=== PATIENT | female | born 1945 | race Caucasian/White ===

== ENCOUNTER → 2016-11-02 | Outpatient (CLI) | payer MEDICARE, OTHER ==
[2016-11-02 08:21] LABS: CHLORIDE,CL 105 mmol/L (98-110); SODIUM,NA 139 mmol/L (136-146)
== END ==
LOC: MW.CHIM 07:42
PROVIDERS: ATTEND Internal Medicine
DX: I10 Essential (primary) hypertension (principal); M17.9 Osteoarthritis of knee, unspecified; E66.3 Overweight
CPT/HCPCS: 36415; 80053; 80061; 99214

== ENCOUNTER 2016-11-21 12:47 | Observation (INO) | payer MEDICARE, OTHER ==
[2016-11-21 13:43] LABS: CHLORIDE,CL 104 mmol/L (98-110); SODIUM,NA 138 mmol/L (136-146)
--- NOTE | 2016-11-21 14:55 | EDM.PDOC ---
ED HPI NEURO - General Chief Complaint: Neuro Symptoms/Deficits Stated Complaint: FAINTING/DIZZY/POSSIBLE STROKE Time Seen by Provider: 11/21/16 12:54 Source of Information: Reports: Patient History Limitations: Reports: No limitations - History of Present Illness INITIAL COMMENTS - FREE TEXT/NARRATIVE: HISTORY AND PHYSICAL: History of present illness: [Patient comes to the emergency room complaining of dizziness. She got up to use the restroom at 7 AM and then laid back down. Her symptoms began suddenly at 7:15 AM this morning after she laid back down in bed. She's had episodes of nausea and one episode of vomiting since her dizziness began. her symptoms have not improved throughout the day. She reports that her heart rate usually runs between 60 and 70. She has a history of hypertension for which she takes Univasc and hydrochlorothiazide at bedtime. She took these medications last night. She denies any chest pain, shortness of breath and difficulty breathing. She felt well last night and has not recently had any illnesses. She has been dealing with infected left upper tooth under her bridge and was prescribed antibiotics several weeks ago. She has noticed some occasional left-sided face discomfort from time to time with some radiation into her left ear. Denies blurred vision double vision. She's had no fever or chills. No headaches. Has had full range of motion of all extremities without weakness. She follows regularly with Dr. Castaneda.] Review of systems: As per history of present illness and below otherwise all systems reviewed and negative. Past medical history: As per history of present illness and as reviewed below otherwise noncontributory. Surgical history: As per history of present illness and as reviewed below otherwise noncontributory. Social history: No reported history of drug or alcohol abuse. 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 Family history: As per history of present illness and as reviewed below otherwise noncontributory. Physical exam: HEENT: Atraumatic, normocephalic. Wears glasses. PERRLA. EOMI. No nystagmus. Nares are patent. TMs are pearly [place] without erythema. Oral mucous membranes are pink and moist. No abdominal swelling erythema or drainage. Sinuses are nontender with palpation. Neck supple, no lymphadenopathy. Lungs: Clear to auscultation, breath sounds equal bilaterally, no wheezing crackles or rales. Heart: S1S2, regular rhythm. Rate 48. negative for clicks, rubs, or JVD. No murmurs. EKG shows normal sinus rhythm at a rate of 49. Abdomen: Normoactive bowel sounds. Soft, nondistended, nontender. Negative for masses, guarding or rebound. Negative for costovertebral tenderness. Genitourinary: Deferred. Rectal: Deferred. Extremities: Atraumatic, no deformities. Full range of motion to extremities. negative for cords or calf pain. Neurovascular unremarkable. Neuro: Awake, alert, oriented. Cranial nerves II through XII unremarkable. Exam nonfocal. Psych: Well-groomed, pleasant and conversational. Patient is a good historian. Diagnostics: [EKG, chest x-ray, head CT without contrast, CBC, CMP, troponin, UA] Impression: [Near syncope Bradycardia] Plan: [Discussed patient's condition with Dr. Rodrick Tapia who agrees to accept patient for observation telemetry. Patient is in agreement with today's plan.] Definitive disposition and diagnosis as appropriate pending reevaluation and review of above. - Related Data Allergies/ADRs: Allergies Allergy/AdvReac Type Severity Reaction Status Date / Time erythromycin base Allergy Swollen Verified 11/21/16 13:00 [Erythromycin Base] Tongue sulfamethoxazole Allergy Swollen Verified 11/21/16 13:00 [From Bactrim] Tongue trimethoprim [From Bactrim] Allergy Swollen Verified 11/21/16 13:00 Tongue Home Meds: Home Meds Hydrochlorothiazide 12.5 mg PO QPM 11/21/16 [History] Moexipril HCl [Moexipril] 15 mg PO QPM 11/21/16 [History] Past Medical History Cardiovascular History: Reports: Hypertension Social & Family History - Family History Family Medical History: Noncontributory - Tobacco Use Smoking Status *Q: Never Smoker - Caffeine Use Caffeine Use: Reports: Coffee Caffeine Use Comment: 6 cups/day - Recreational Drug Use Recreational Drug Use: No ED ROS GENERAL - Review of Systems Review Of Systems: ROS reveals no pertinent complaints other than HPI. ED EXAM, NEURO - Physical Exam Exam: See Below Course - Vital Signs Last Recorded V/S: Last Vital Signs Temp 97.0 F 11/21/16 13:02 Pulse 74 11/21/16 15:03 Resp 16 11/21/16 15:03 BP 150/72 H 11/21/16 15:03 Pulse Ox 97 11/21/16 15:03 - Orders/Labs/Meds Orders: Active Orders 24 hr Category Date Time Status Admission Status [Patient Status] [ADT] Stat ADT 11/21/16 14:39 Active EKG Documentation Completion [RC] STAT Care 11/21/16 12:54 Active Chest 2V [CR] Stat Exams 11/21/16 13:07 Taken Head wo Cont [CT] Stat Exams 11/21/16 13:10 Taken Labs: Laboratory Tests 11/21/16 11/21/16 11/21/16 Range/Units 13:20 13:20 13:20 WBC 5.71 (4.0-11.0) K/uL RBC 4.52 (4.30-5.90) M/uL Hgb 13.4 (12.0-16.0) g/dL Hct 40.0 (36.0-46.0) % MCV 88.5 (80.0-98.0) fL MCH 29.6 (27.0-32.0) pg MCHC 33.5 (31.0-37.0) g/dL RDW Std Deviation 42.9 (28.0-62.0) fl RDW Coeff of Maged 13 (11.0-15.0) % Plt Count 281 (150-400) K/uL MPV 9.60 (7.40-12.00) fL Neut % (Auto) 79.3 (48.0-80.0) % Lymph % (Auto) 13.3 L (16.0-40.0) % [place] % (Auto) 6.5 (0.0-15.0) % Eos % (Auto) 0.5 (0.0-7.0) % Baso % (Auto) 0.4 (0.0-1.5) % Neut # (Auto) 4.5 (1.4-5.7) K/uL Lymph # (Auto) 0.8 (0.6-2.4) K/uL [place] # (Auto) 0.4 (0.0-0.8) K/uL Eos # (Auto) 0.0 (0.0-0.7) K/uL Baso # (Auto) 0.0 (0.0-0.1) K/uL Nucleated RBC % 0.0 /100WBC Nucleated RBCs # 0 K/uL Sodium 138 (136-146) mmol/L Potassium 3.2 L (3.5-5.1) mmol/L Chloride 104 (98-110) mmol/L Carbon Dioxide 25 (21-31) mmol/L BUN 9 (6.0-23.0) mg/dL Creatinine 0.6 (0.6-1.5) mg/dL Est Cr Clr Drug Dosing 73.20 mL/min Estimated GFR (MDRD) > 60.0 ml/min Glucose 111 H (60-110) mg/dL Calcium 8.9 (8.8-10.8) mg/dL Total Bilirubin 0.6 (0.1-1.5) mg/dL AST 17 (5-40) IU/L ALT 15 (8-54) IU/L Alkaline Phosphatase 51 (40-150) Troponin I < 0.10 (0.0-0.29) NG/ML Total Protein 6.8 (6.0-8.0) g/dL Albumin 3.8 (3.4-4.8) g/dL Globulin 3.0 (2.0-3.5) g/dL Albumin/Globulin Ratio 1.3 (1.3-2.8) Urine Color Urine Appearance Urine pH (5.0-8.0) Ur Specific [place] (1.001-1.035) Urine Protein (NEGATIVE) mg/dL Urine Glucose (UA) (NEGATIVE) mg/dL Urine Ketones (NEGATIVE) mg/dL Urine Occult Blood (NEGATIVE) Urine Nitrite (NEGATIVE) Urine Bilirubin (NEGATIVE) Urine Urobilinogen (<2.0) EU/dL Ur Leukocyte Esterase (NEGATIVE) Urine RBC (0-2/HPF) Urine WBC (0-5/HPF) Ur Epithelial Cells (NONE-FEW) Amorphous Sediment (NEGATIVE) Urine Bacteria (NEGATIVE) Urine Mucus (NONE-MOD) 11/21/16 Range/Units 13:45 WBC (4.0-11.0) K/uL RBC (4.30-5.90) M/uL Hgb (12.0-16.0) g/dL Hct (36.0-46.0) % MCV (80.0-98.0) fL MCH (27.0-32.0) pg MCHC (31.0-37.0) g/dL RDW Std Deviation (28.0-62.0) fl RDW Coeff of Maged (11.0-15.0) % Plt Count (150-400) K/uL MPV (7.40-12.00) fL Neut % (Auto) (48.0-80.0) % Lymph % (Auto) (16.0-40.0) % [place] % (Auto) (0.0-15.0) % Eos % (Auto) (0.0-7.0) % Baso % (Auto) (0.0-1.5) % Neut # (Auto) (1.4-5.7) K/uL Lymph # (Auto) (0.6-2.4) K/uL [place] # (Auto) (0.0-0.8) K/uL Eos # (Auto) (0.0-0.7) K/uL Baso # (Auto) (0.0-0.1) K/uL Nucleated RBC % /100WBC Nucleated RBCs # K/uL Sodium (136-146) mmol/L Potassium (3.5-5.1) mmol/L Chloride (98-110) mmol/L Carbon Dioxide (21-31) mmol/L BUN (6.0-23.0) mg/dL Creatinine (0.6-1.5) mg/dL Est Cr Clr Drug Dosing mL/min Estimated GFR (MDRD) ml/min Glucose (60-110) mg/dL Calcium (8.8-10.8) mg/dL Total Bilirubin (0.1-1.5) mg/dL AST (5-40) IU/L ALT (8-54) IU/L Alkaline Phosphatase (40-150) Troponin I (0.0-0.29) NG/ML Total Protein (6.0-8.0) g/dL Albumin (3.4-4.8) g/dL Globulin (2.0-3.5) g/dL Albumin/Globulin Ratio (1.3-2.8) Urine Color YELLOW Urine Appearance CLOUDY Urine pH 7.5 (5.0-8.0) Ur Specific [place] 1.015 (1.001-1.035) Urine Protein TRACE (NEGATIVE) mg/dL Urine Glucose (UA) NEGATIVE (NEGATIVE) mg/dL Urine Ketones TRACE H (NEGATIVE) mg/dL Urine Occult Blood NEGATIVE (NEGATIVE) Urine Nitrite NEGATIVE (NEGATIVE) Urine Bilirubin NEGATIVE (NEGATIVE) Urine Urobilinogen 0.2 (<2.0) EU/dL Ur Leukocyte Esterase NEGATIVE (NEGATIVE) Urine RBC 0-1 (0-2/HPF) Urine WBC 0-1 (0-5/HPF) Ur Epithelial Cells OCCASIONAL (NONE-FEW) Amorphous Sediment MODERATE (NEGATIVE) Urine Bacteria 1+ H (NEGATIVE) Urine Mucus LIGHT (NONE-MOD) Departure - Departure Time of Disposition: 14:39 Disposition: Refer to Observation Condition: good Clinical Impression: Near syncope - My Orders Last 24 Hours: My Active Orders 11/21/16 12:54 EKG Documentation Completion [RC] STAT 11/21/16 13:07 Chest 2V [CR] Stat 11/21/16 13:10 Head wo Cont [CT] Stat 11/21/16 14:39 Admission Status [Patient Status] [ADT] Stat - Assessment/Plan Last 24 Hours: My Active Orders 11/21/16 12:54 EKG Documentation Completion [RC] STAT 11/21/16 13:07 Chest 2V [CR] Stat 11/21/16 13:10 Head wo Cont [CT] Stat 11/21/16 14:39 Admission Status [Patient Status] [ADT] Stat
[2016-11-21] MEDS ORDERED: Potassium Chloride 20 MEQ Tab.ER PO ONE (20:29)
[2016-11-21] MEDS ORDERED: Ondansetron 4 MG/2 ML SDV IVPUSH PRN (20:29)
--- NOTE | 2016-11-21 20:44 | PCM.HP ---
H&P History of Present Illness - General Date of Service: 11/21/16 - History of Present Illness Initial Comments - Free Text/Narative: 71 yo female with pmh of hypertension who presented with one day history of dizziness. After waking up this morning and going to the bathroom she went back to bed. 15 minutes later when she tried to get up she was dizzy and could hardly walk. She described her dizziness as if the room was spinning. She denies any lightheadedness, palpitations, or chest pain. She reports nausea with her dizziness. It last for several hours until she reached the medical floor. - Related Data Allergies/Adverse Reactions: Allergies Allergy/AdvReac Type Severity Reaction Status Date / Time erythromycin base Allergy Swollen Verified 11/21/16 13:00 [Erythromycin Base] Tongue sulfamethoxazole Allergy Swollen Verified 11/21/16 13:00 [From Bactrim] Tongue trimethoprim [From Bactrim] Allergy Swollen Verified 11/21/16 13:00 Tongue Home Medications: Home Meds Hydrochlorothiazide 12.5 mg PO QPM 11/21/16 [History] Moexipril HCl [Moexipril] 15 mg PO QPM 11/21/16 [History] Levofloxacin [Levaquin] 250 mg PO Q24H #3 tablet 11/22/16 [Rx] Past Medical History Cardiovascular History: Reports: Hypertension Social & Family History - Family History Family Medical History: Noncontributory - Tobacco Use Smoking Status *Q: Never Smoker - Caffeine Use Caffeine Use: Reports: Coffee Caffeine Use Comment: 6 cups/day - Recreational Drug Use Recreational Drug Use: No H&P Review of Systems - Review of Systems: Review Of Systems: See Below General: Reports: no symptoms HEENT: Reports: no symptoms Pulmonary: Reports: No Symptoms Cardiovascular: Reports: no symptoms Gastrointestinal: Reports: No symptoms Genitourinary: Reports: no symptoms Musculoskeletal: Reports: no symptoms Skin: Reports: no symptoms Psychiatric: Reports: no symptoms Neurological: Reports: No Symptoms Hematologic/Lymphatic: Reports: no symptoms Immunologic: Reports: no symptoms Exam - Exam Exam: See Below - Vital Signs Vital Signs: Last Vital Signs Temp 36.9 C 11/21/16 15:06 Pulse 49 L 11/21/16 15:23 Resp 16 11/21/16 15:23 BP 148/82 H 11/21/16 15:23 Pulse Ox 98 11/21/16 15:23 Weight: 74.253 kg - Exam General: alert, oriented HEENT: Posterior pharynx clear Neck: supple, trachea midline, 2 Lungs: Clear to auscultation, Normal respiratory effort Cardiovascular: regular rate, regular rhythm Abdomen: normal bowel sounds, soft Extremities: 3, normal inspection, 10 Skin: warm, dry, intact Neurological: cranial nerves intact, reflexes equal bilateral, strength equal bilateral, normal speech, normal tone, other (slight unsteadiness in gait and when standing with eyes closed). No: focal deficit - Patient Data Result Diagrams: 11/22/16 05:07 11/22/16 05:07 *Q Meaningful Use (ADM) - VTE *Q VTE Criteria *Q: - Stroke *Q Stroke Criteria *Q: - AMI *Q AMI Criteria *Q: Problem List Initiated/Reviewed/Updated: Yes Orders Last 24hrs: Active Orders 24 hr Category Date Time Status Antiembolic Devices [RC] PER UNIT ROUTINE Care 11/21/16 20:31 Active Oxygen Therapy [RC] PRN Care 11/21/16 20:29 Active Up With Assistance [RC] ASDIRECTED Care 11/21/16 20:29 Active VTE/DVT Education [RC] PER UNIT ROUTINE Care 11/21/16 20:29 Active Vital Signs [RC] Q4H Care 11/21/16 20:29 Active Regular Diet [DIET] Diet 11/21/16 Dinner Active BASIC METABOLIC PANEL,BMP [CHEM] AM Lab 11/22/16 05:11 Ordered CBC WITH AUTO DIFF [HEME] AM Lab 11/22/16 05:11 Ordered MAGNESIUM [CHEM] AM Lab 11/22/16 05:11 Ordered MAGNESIUM [CHEM] Routine Lab 11/21/16 13:20 Received Hydrochlorothiazide Med 11/22/16 18:00 Ordered 12.5 mg PO QPM Moexipril [Univasc] Med 11/22/16 18:00 Ordered 15 mg PO QPM Ondansetron [Zofran] Med 11/21/16 20:29 Ordered 4 mg IVPUSH Q4H PRN Potassium Chloride [Klor-Con M20] Med 11/21/16 20:29 Once 40 meq PO ONETIME ONE Sequential Compression Device [OM.PC] Per Unit Routine Oth 11/21/16 20:30 Ordered Medication Orders Hydrochlorothiazide (Hydrochlorothiazide) 12.5 mg PO QPM SONIA Moexipril HCl (Univasc) 15 mg PO QPM SONIA Ondansetron HCl (Zofran) 4 mg IVPUSH Q4H PRN PRN Reason: Nausea Potassium Chloride (Klor-Con M20) 40 meq PO ONETIME ONE Stop: 11/21/16 20:30 Assessment/Plan Comment:: 71 yo female admitted with dizziness. Likely vertigo over symptomatic bradycardia. Will monitor overnight on telemetry. Will consult PT.
[2016-11-22 06:32] LABS: CHLORIDE,CL 107 mmol/L (98-110); SODIUM,NA 141 mmol/L (136-146)
[2016-11-22 09:06] VITALS: BP 128/65
--- NOTE | 2016-11-22 11:06 | CT ---
EXAM DATE: 11/21/16 PATIENT'S AGE: 71 Patient: VIKTOR STRICKLAND Facility: [place], [place] Site . Site : 1945 Study: CT Head [id number]/9/2017 1:31:11 PM Ordering Physician: Doctor Santos Final Report: INDICATION: Fainting episode. Dizziness. TECHNIQUE: Noncontrast head CT. COMPARISON: October 20, 2015. FINDINGS: No intracranial hemorrhage or hydrocephalus. No mass effect or shift of midline structures. The calvarium and skull base are negative for fractures. The included paranasal sinuses and mastoid air cells are largely clear except for trace mucosal thickening in the left maxillary sinus. Clear interval improvement in the appearance of the maxillary sinuses compared to the prior study. IMPRESSION: 1. No acute intracranial process identified. 2. Trace mucosal thickening in the left maxillary sinus clearly improved compared to the prior study. Dictated by Abdulkadir Boston MD @ 11/21/2016 1:56:57 PM Dictated by: Abdulkadir Boston MD @ 11/21/2016 13:57:06 (Electronic Signature) Report Signed by Proxy and Original Signed Document filed in the Medical Record. [facility] HOSPITALJoey
--- NOTE | 2016-11-22 11:11 | CR ---
EXAM DATE: 11/21/16 PATIENT'S AGE: 71 Patient: VIKTOR STRICKLAND Facility: [place], [place] Site . Site : 1945 Study: XRay Chest [id number]/9/2017 1:41:19 PM Ordering Physician: Doctor Santos Final Report: Indication: Dizziness and shortness of breath. Comparison: None. Findings: The bones are diffusely demineralized and radiopaque fixation screw/devices project over the right proximal humerus. Cardiac silhouette is mildly enlarged with a left ventricular configuration. Pulmonary vasculature is mildly prominent. There are no focal infiltrates nor pleural effusions. Surgical clips in the right upper quadrant reflect prior cholecystectomy. Impression: Mild pulmonary vascular congestion with cardiomegaly. Dictated by Licha Oates MD @ Nov 21 2016 2:24PM (Electronic Signature) Report Signed by Proxy and Original Signed Document filed in the Medical Record. [facility]E
[2016-11-22] MEDS ORDERED: Hydrochlorothiazide 12.5 MG Cap PO SCH (18:00)
--- NOTE | 2016-11-24 18:09 | PCM.DCSUM1 ---
Discharge Summary - Hospital Course Free Text/Narrative:: Admission diagnosis: 1. dizziness 2. Bradycardia 3. Hypertension Discharge diagnosis: 1. dizziness, resolved 2. Bradycardia, improved 3. Hypertension, stable 4. UTI 71 year old female admitted with dizziness and bradycardia. Head CT showed no acute abnormalities. CXR showed mild pulmonary vascular congestion and cardiomegaly. Patient placed on telemetry which showed bradycardia in normal sinus rhythm. HR varied between 47-75. Home medications of HCTZ and Moexipril continued during admission. Assessed by PT who suggested possible inner ear problems causing dizziness. Dizziness resolved during admission. Dr. Stevenson, hvac lead, contacted and recommended outpatient f/u with him. CBC, troponin were unremarkable. CMP showed potassium of 3.2 which returned to normal limits with potassium supplementation. UA showed +1 bacteria and trace ketones. Patient felt improved at time of discharge. - Discharge Data Discharge Date: 11/22/16 Discharge Disposition: Home, Self-Care 01 Condition: Good - Discharge Diagnosis/Problem(s) (1) Vertigo SNOMED Code(s): 671049962 ICD Code: R42 - DIZZINESS AND GIDDINESS Status: Acute (2) Bradycardia SNOMED Code(s): 44239559 ICD Code: R00.1 - BRADYCARDIA, UNSPECIFIED Status: Acute (3) UTI (urinary tract infection) SNOMED Code(s): 77238374 ICD Code: N39.0 - URINARY TRACT INFECTION, SITE NOT SPECIFIED Status: Acute (4) Near syncope SNOMED Code(s): 911707149 ICD Code: R55 - SYNCOPE AND COLLAPSE Status: Acute - Patient Summary/Data Consults: Consultations 11/21/16 20:45 PT Evaluation and Treatment [CONS] Routine - Patient Instructions Diet: Usual Diet as Tolerated Activity: As Tolerated Driving: May Drive Today Showering/Bathing: May Shower Notify Provider of: Fever, Increased Pain, Nausea and/or Vomiting - Discharge Plan Prescriptions/Med Rec: Levofloxacin [Levaquin] 250 mg PO Q24H #3 tablet Home Medications: Home Meds Hydrochlorothiazide 12.5 mg PO QPM 11/21/16 [History] Moexipril HCl [Moexipril] 15 mg PO QPM 11/21/16 [History] Levofloxacin [Levaquin] 250 mg PO Q24H #3 tablet 11/22/16 [Rx] Patient Handouts: Near-Syncope, [id number], Levofloxacin tablets Referrals: [facility] [Outside] Aniya Stevenson MD [Physician] - 11/29/16 11:00 am Tye Castaneda MD [Physician] - 11/29/16 1:30 pm - Discharge Summary/Plan Comment DC Time >30 min.: No Discharge Summary/Plan Comment: Admission diagnosis: 1. dizziness 2. Bradycardia 3. Hypertension Discharge diagnosis: 1. dizziness, resolved 2. Bradycardia, improved 3. Hypertension, stable 4. UTI 71 year old female admitted with dizziness and bradycardia. Head CT showed no acute abnormalities. CXR showed mild pulmonary vascular congestion and cardiomegaly. Patient placed on telemetry which showed bradycardia in normal sinus rhythm. HR varied between 47-75. Home medications of HCTZ and Moexipril continued during admission. Assessed by PT who suggested possible inner ear problems causing dizziness. Dizziness resolved during admission. Dr. Stevenson, hvac lead, contacted and recommended outpatient f/u with him. CBC, troponin were unremarkable. CMP showed potassium of 3.2 which returned to normal limits with potassium supplementation. UA showed +1 bacteria and trace ketones. Patient felt improved at time of discharge. Discharge plan: 1. f/u with hvac lead 2. f/u with PCP 3. Prescribed Levaquin 750mg daily for 3 days for UTI 4. Home medications resumed - Patient Data Vitals - Most Recent: Last Vital Signs Temp 97.8 F 11/22/16 08:00 Pulse 70 11/22/16 08:00 Resp 17 11/22/16 08:00 BP 128/65 11/22/16 08:00 Pulse Ox 93 L 11/22/16 08:00 Weight - Most Recent: 163 lb 11.2 oz Med Orders - Current: Current Medications Discontinued Medications Hydrochlorothiazide (Hydrochlorothiazide) 12.5 mg PO QPM SONIA Moexipril HCl (Univasc) 15 mg PO QPM SONIA Ondansetron HCl (Zofran) 4 mg IVPUSH Q4H PRN PRN Reason: Nausea Potassium Chloride (Klor-Con M20) 40 meq PO ONETIME ONE Stop: 11/21/16 20:30 Last Admin: 11/21/16 20:57 Dose: 40 meq *Q Meaningful Use (DIS) - VTE *Q VTE Criteria *Q: - Stroke *Q Stroke Criteria *Q: - AMI *Q AMI Criteria *Q:
== END 2016-11-22 14:00 | disposition home or self-care (01) ==
LOC: MW.ED 12:47 → MW.MS 14:39 → UNDOADMOB 14:59 → MW.MS 14:59
PROVIDERS: ADMIT Internal Medicine; ATTEND Internal Medicine
DX: R42 Dizziness and giddiness (principal); R00.1 Bradycardia, unspecified; I10 Essential (primary) hypertension; N39.0 Urinary tract infection, site not specified; R55 Syncope and collapse; Z79.899 Other long term (current) drug therapy
CPT/HCPCS: 36415; 70450; 71020; 80048; 80053; 81001; 83735; 84484; 85025; 93005; 97161; 99285; A9270; G0378

== ENCOUNTER → 2016-11-29 | Outpatient (CLI) | payer MEDICARE, OTHER | LOC: MW.CHIM 11:59 | PROVIDERS: ATTEND Internal Medicine | DX: E78.5 Hyperlipidemia, unspecified (principal); I11.0 Hypertensive heart disease with heart failure; I50.30 Unspecified diastolic (congestive) heart failure; I10 Essential (primary) hypertension; R42 Dizziness and giddiness | CPT/HCPCS: 36415; 83880; 84443; 99214 ==

== ENCOUNTER → 2016-12-06 | Outpatient (CLI) | payer MEDICARE, OTHER ==
--- NOTE | 2016-12-08 17:56 | ECHO ---
EXAM DATE: 12/06/16 The echocardiogram report can be seen in this patient's EMR (Electronic Medical Record) in the Reports section. VALE
== END | disposition home or self-care (01) ==
LOC: MW.US 10:08
PROVIDERS: ATTEND Internal Medicine
DX: R42 Dizziness and giddiness (principal); I51.7 Cardiomegaly; I35.1 Nonrheumatic aortic (valve) insufficiency
CPT/HCPCS: 93306

== ENCOUNTER → 2016-12-09 | Outpatient (CLI) | payer MEDICARE, OTHER | LOC: MW.CHIM 08:00 | PROVIDERS: ATTEND Internal Medicine | DX: R42 Dizziness and giddiness (principal); I11.0 Hypertensive heart disease with heart failure; E78.5 Hyperlipidemia, unspecified; R00.1 Bradycardia, unspecified | CPT/HCPCS: G0463 ==

== ENCOUNTER → 2016-12-16 | Outpatient (CLI) | payer MEDICARE, OTHER | LOC: MW.CHIM 08:00 | PROVIDERS: ATTEND Internal Medicine | DX: R42 Dizziness and giddiness (principal); R00.1 Bradycardia, unspecified; I10 Essential (primary) hypertension | CPT/HCPCS: 99214 ==

== ENCOUNTER → 2016-12-21 | Outpatient (CLI) | payer MEDICARE, OTHER ==
--- NOTE | 2016-12-23 13:01 | XA ---
Exam Date: 12/21/16 Patient's Age: 71 HEIGHT: 63.0 in. WEIGHT: 162.0 lbs. INDICATIONS: Bilateral oophorectomy, , early menopause, height loss, hypertension, hysterectomy, low calcium intake, postmenopausal. FRACTURES: TREATMENTS: Aspirin, Citracal, CoQ10 enzyme, cranberry, glucosamine, hydrochlorothiazide, moexipril (BP), vitamin C, vitamin D. ASSESSMENT: The BMD measured at AP Spine L1-L4 is 1.050 g/cm2 with a T-score of -1.2. This patient is considered osteopenic according to World Health Organization (WHO) criteria. Bone [id number] is between 10% and 25% below young normal. Fracture risk is moderate. Treatment is advised. The BMD measured at Femur Troch Mean is 0.880 g/cm2 with a T-score of 0.3 is normal. Fracture risk is low. RESULTS: Site Region Age Classification T-Score BMD AP Spine L1-L4 69.2 Osteopenia -1.2 1.050 g/cm2 Dual Femur Neck Mean 69.2 Normal -0.9 0.917 g/cm2 Dual Femur Troch Mean 69.2 N/A 0.3 0.888 g/cm2 Dual Femur Total Mean 69.2 Normal -0.2 0.983 g/cm2 World Health Organization - Criteria for post-menopausal, women: Normal: T-Score at or above -1 SD Osteopenia: T-Score between -1 and -2.5 SD Osteoporosis: T-Score at or below -2.5 SD RECOMMENDATION: Pharmacologic treatment recommendations & Initiate pharmacologic treatment: - In those with hip or vertebral (clinical or asymptomatic) fractures - In those with T -scores <-2.5 at the femoral neck, total hip, or lumbar spine by DXA - In postmenopausal women and men age 50 and older with low bone mass (T-score between -1.0 and -2.5, osteopenia) at the femoral neck, total hip, or lumbar spine by DXA and a 10-year hip fracture probability >3 % or a 10-year major osteoporosis-related fracture probability >20% based on the [place]-adapted WHO absolute fracture risk model (Fracture Risk Algorithm (FRAX); www. NOF.org and www.shef.ac.uk/FRAX) FOLLOW UP: People with diagnosed cases of osteoporosis or at high risk for fracture should have regular bone mineral density tests. For patients eligible for Medicare, routine testing is allowed once every 2 years. The testing frequency can be increased to 1 year for patients who have rapidly progressing disease, those who are reviewing or discontinuing medial therapy to restore bone mass, or have additional risk factors. People with diagnosed cases of osteoporosis or osteopenia should be regularly tested for bone mineral density. For patient eligible for Medicare, routine testing is allowed once every 2 years. The testing frequency can be increased to 1 year for patients who have rapidly progressing disease, or for those who are receiving medial therapy to restore bone mass. [facility] [place] -- ROSY Sahni [phone] - FAX: [phone] [facility]
== END ==
LOC: MW.DI 10:09
PROVIDERS: ATTEND Internal Medicine
DX: M19.90 Unspecified osteoarthritis, unspecified site (principal); M85.88 Other specified disorders of bone density and structure, other site
CPT/HCPCS: 77080; 77080-26

== ENCOUNTER 2017-07-01 19:34 | Emergency (ER) | payer MEDICARE, OTHER ==
--- NOTE | 2017-07-01 20:12 | EDM.PDOC ---
ED HPI GENERAL MEDICAL PROBLEM - General Chief Complaint: ENT Problem Stated Complaint: FALL/PAIN NOSE Time Seen by Provider: 07/01/17 19:45 Source of Information: Reports: Patient History Limitations: Reports: No Limitations - History of Present Illness INITIAL COMMENTS - FREE TEXT/NARRATIVE: HISTORY AND PHYSICAL: History of present illness: Patient is a 71-year-old female who presents to the emergency room after falling in a parking lot approximately an hour prior to arrival. She states she was walking and tripped, landing on her face. She denies any loss of consciousness. There is an abrasion with swelling to the bridge of the nose and upper left forehead. She denies being on any anticoagulants. Denies any extremity pain, back pain, or neck pain. Denies any visual changes, headache, nausea, vomiting or diarrhea. Denies any chest pain or shortness of breath. Patient is unsure of her last tetanus booster Review of systems: As per history of present illness and below otherwise all systems reviewed and negative. Past medical history: As per history of present illness and as reviewed below otherwise noncontributory. Surgical history: As per history of present illness and as reviewed below otherwise noncontributory. Social history: No reported history of drug or alcohol abuse. Family history: As per history of present illness and as reviewed below otherwise noncontributory. Physical exam: Gen.: Well-developed and well-nourished 71-year-old female. Alert and oriented. Appears nontoxic. HEENT: Normocephalic, pupils reactive, negative for conjunctival pallor or scleral icterus, mucous membranes moist, throat clear, neck supple, nontender, trachea midline. Abrasion over the bridge of the nose with mild swelling and bruising. Lungs: Clear to auscultation, breath sounds equal bilaterally, chest nontender. Heart: S1S2, regular, negative for clicks, rubs, or JVD. Abdomen: Soft, nondistended, nontender. Negative for masses or hepatosplenomegaly. Negative for costovertebral tenderness. Pelvis: Stable nontender. Genitourinary: Deferred. Rectal: Deferred. C-spine/back: No vertebral or pinpoint tenderness with palpation. Extremities: Moves all extremities per self, no pain with joint range of motion.. Neurovascular unremarkable. Neuro: Awake, alert, oriented. Cranial nerves II through XII unremarkable. Cerebellum unremarkable. Motor and sensory unremarkable throughout. Exam nonfocal. Patient states she does not want a tetanus booster at this time as she was to check her home records to see if she's had one within the last 5 years. She states that she needs on she will follow-up with her primary care provider. I did offer her Toradol for pain, she states she is "okay" and declines at this time. Patient reports she will inform the nurse if she does want something for pain in the near future. Patient is agreeable to CT scans. After CT scan was completed, patient is now agreeable to receiving something for pain. We discussed her options and agreed upon [place]. Her he is here to drive her home. She found out her last tetanus was in 2005, that will be updated today. The open abrasions were cleansed with chlorhexidine, bacitracin was applied by nursing staff. CT of the C-spine showed osteoarthritis with no acute fractures. CT of the facial bones shows minimally displaced bilateral nasal bone fractures. Head CT has no intracranial hemorrhage or skull fractures. She Prescription for [place] 5/325 (#15), Zofran (#5), and Keflex. We discussed using an [id number] antihistamine. To avoid blowing her nose vigorously. Resting /sleeping with her head elevated. Follow-up with either Dr. Tello, plastic surgeon or Dr. Ralph Gilbert, ENT. Patient voices understanding and is agreeable to plan of care. Denies any further questions at this time. Diagnostics: Head CT, CT facial bones, CT C-spine Therapeutics: [place] 5/325 by mouth, Tdap, bacitracin Impression: Nasal bone fracture Plan: 1. A prescription for [place] has been provided for you. Please do not take this medication when driving or needing to be functioning at work, as this is a narcotic and may cause drowsiness. You may take Tylenol or ibuprofen as needed [id number] for daytime use. Ice initially will help with the swelling. 2. An antihistamine either orally (Benadryl) or nasally (Flonase) will help with drainage and swelling. 3. Keflex has been prescribed prophylactically for sinus infection. Avoid blowing her nose vigorously 4. Rest/sleep with her head elevated (Placing 2-3 pillows under your head) 5. Follow-up with Dr. Tello, plastic surgery or Dr. Gilbert, ENT next week. Return to the ED as needed and as discussed. Definitive disposition and diagnosis as appropriate pending reevaluation and review of above. Onset: Today nasal bridge Pain Score (Numeric/FACES): 4 - Related Data Allergies Allergy/AdvReac Type Severity Reaction Status Date / Time erythromycin base Allergy Swollen Verified 07/01/17 19:43 [Erythromycin Base] Tongue sulfamethoxazole Allergy Swollen Verified 07/01/17 19:43 [From Bactrim] Tongue trimethoprim [From Bactrim] Allergy Swollen Verified 07/01/17 19:43 Tongue Home Meds: Home Meds Hydrochlorothiazide 12.5 mg PO QPM 11/21/16 [History] Moexipril HCl [Moexipril] 15 mg PO QPM 11/21/16 [History] Past Medical History HEENT History: Reports: None Cardiovascular History: Reports: Hypertension Respiratory History: Reports: None Gastrointestinal History: Reports: None Genitourinary History: Reports: None 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: Musculoskeletal History: Reports: None Neurological History: Reports: None Psychiatric History: Reports: None Endocrine/Metabolic History: Reports: None Hematologic History: Reports: None Immunologic History: Reports: None Oncologic (Cancer) History: Reports: None Dermatologic History: Reports: None - Infectious Disease History Infectious Disease History: Reports: Chicken Pox, Measles, Mumps - Past Surgical History Head Surgeries/Procedures: Reports: None HEENT Surgical History: Reports: None Social & Family History - Family History Family Medical History: Noncontributory - Tobacco Use Smoking Status *Q: Never Smoker - Caffeine Use Caffeine Use: Reports: Coffee, Soda Caffeine Use Comment: 6 cups/day - Recreational Drug Use Recreational Drug Use: No ED ROS ENT - Review of Systems Review Of Systems: ROS reveals no pertinent complaints other than HPI. ED EXAM, ENT - Physical Exam Exam: See Below (See dictation) Course - Vital Signs Last Recorded V/S: Last Vital Signs Temp 36.4 C 07/01/17 19:44 Pulse 71 07/01/17 19:44 Resp 18 07/01/17 19:44 BP 138/69 07/01/17 19:44 Pulse Ox 95 07/01/17 19:44 - Orders/Labs/Meds Orders: Active Orders 24 hr Category Date Time Status Vaccines to be Administered [RC] PER UNIT ROUTINE Care 07/01/17 21:10 Active Cervical Spine wo Cont [CT] Stat Exams 07/01/17 20:08 Taken Head wo Cont [CT] Stat Exams 07/01/17 20:05 Taken Max Facial Sinus wo Cont [CT] Stat Exams 07/01/17 20:17 Taken Meds: Medications Discontinued Medications Generic Name Dose Route Start Last Admin Trade Name Freq PRN Reason Stop Dose Admin Hydrocodone Bitart/Acetaminophen 1 tab 07/01/17 21:10 07/01/17 21:17 [place] 325-5 Mg PO 07/01/17 21:11 1 tab ONETIME ONE Administration Bacitracin 1 dose 07/01/17 21:21 07/01/17 21:24 Bacitracin Oint 1 Gm TOP 07/01/17 21:22 1 dose ONETIME ONE Administration Diphtheria/Tetanus/Acell Pertussis 0.5 ml 07/01/17 21:09 07/01/17 21:18 Adacel IM 07/01/17 21:10 0.5 ml .ONCE ONE Administration Departure - Departure Time of Disposition: 21:36 Disposition: Home, Self-Care 01 Clinical Impression: Nasal bone fracture Qualifiers: Encounter type: initial encounter Fracture type: closed Qualified Code(s): S02.2XXA - Fracture of nasal bones, initial encounter for closed fracture Head injury Qualifiers: Encounter type: initial encounter Qualified Code(s): S09.90XA - Unspecified injury of head, initial encounter - Discharge Information Referrals: Tye Castaneda MD [Primary Care Provider] - Forms: ED Department Discharge Additional Instructions: My general discharge The following information is given to patients seen in the emergency department who are being discharged to home. This information is to outline your options for follow-up care. We provide all patients seen in our emergency department with a follow-up referral. The need for follow-up, as well as the timing and circumstances, are variable depending upon the specifics of your emergency department visit. If you don't have a primary care physician on staff, we will provide you with a referral. We always advise you to contact your personal physician following an emergency department visit to inform them of the circumstance of the visit and for follow-up with them and/or the need for any referrals to a consulting specialist. The emergency department will also refer you to a specialist when appropriate. This referral assures that you have the opportunity for follow-up care with a specialist. All of these measure are taken in an effort to provide you with optimal care, which includes your follow-up. Under all circumstances we always encourage you to contact your private physician who remains a resource for coordinating your care. When calling for follow-up care, please make the office aware that this follow-up is from your recent emergency room visit. If for any reason you are refused follow-up, please contact the [facility] Emergency Department at and asked to speak to the emergency department charge nurse. [facility] Specialty Care - Plastic Surgery Professional Building [address] [place] [address], [address] [place] [address] 1. A prescription for [place] has been provided for you. Please do not take this medication when driving or needing to be functioning at work, as this is a narcotic and may cause drowsiness. You may take Tylenol or ibuprofen as needed [id number] for daytime use. Ice initially will help with the swelling. 2. An antihistamine either orally (Benadryl) or nasally (Flonase) will help with drainage and swelling. 3. Keflex has been prescribed prophylactically for sinus infection. Avoid blowing her nose vigorously 4. Rest/sleep with her head elevated (Placing 2-3 pillows under your head) 5. Follow-up with Dr. Tello, plastic surgery or Dr. Gilbert, ENT next week. Return to the ED as needed and as discussed. - My Orders Last 24 Hours: My Active Orders 07/01/17 20:05 Head wo Cont [CT] Stat 07/01/17 20:08 Cervical Spine wo Cont [CT] Stat 07/01/17 20:17 Max Facial Sinus wo Cont [CT] Stat 07/01/17 21:10 Vaccines to be Administered [RC] PER UNIT ROUTINE - Assessment/Plan Last 24 Hours: My Active Orders 07/01/17 20:05 Head wo Cont [CT] Stat 07/01/17 20:08 Cervical Spine wo Cont [CT] Stat 07/01/17 20:17 Max Facial Sinus wo Cont [CT] Stat 07/01/17 21:10 Vaccines to be Administered [RC] PER UNIT ROUTINE
[2017-07-01] MEDS ORDERED: Diphtheria,Pertussis(Acell),Tetanus Vaccine 0.5 ML Syringe IM ONE (21:09)
[2017-07-01] MEDS ORDERED: Acetaminophen/HYDROcodone 325-5 MG Tab PO ONE (21:10)
[2017-07-01] MEDS ORDERED: Bacitracin Oint 1 GM U/D Packet TOP ONE (21:21)
[2017-07-01 22:06] VITALS: BP 124/63
--- NOTE | 2017-07-04 10:49 | CT ---
EXAM DATE: 07/01/17 PATIENT'S AGE: 71 Patient: VIKTOR STRICKLAND Facility: [place], [place] Site . Site : 1945 Study: CT Spine Cervical [id number]/17/2017 8:57:01 PM Ordering Physician: Doctor Santos Final Report: INDICATION: Toggle TECHNIQUE: CT cervical spine without contrast. COMPARISON: None FINDINGS: Vertebral alignment: Alignment is normal. Vertebrae: There are no fractures or suspicious bony lesions. Discs and facet joints: There are moderate multilevel degenerative disc and facet changes. Extraspinal findings: Paraspinous soft tissues are unremarkable. IMPRESSION: 1. No sign of acute injury. 2. Multilevel degenerative spondylosis. Please note that all CT scans at this facility use dose modulation, iterative reconstruction, and/or weight-based dosing when appropriate to reduce radiation dose to as low as reasonably achievable. Dictated by Licha Mcclellan MD @ Jul 01 2017 9:15PM (Electronic Signature) Report Signed by Proxy. MTDD
--- NOTE | 2017-07-04 10:50 | CT ---
EXAM DATE: 07/01/17 PATIENT'S AGE: 71 Patient: VIKTOR STRICKLAND Facility: [place], [place] Site . Site : 1945 Study: CT Facial [id number]/17/2017 8:57:22 PM Ordering Physician: Doctor Santos Final Report: INDICATION: Fall, nasal bone laceration TECHNIQUE: CT maxillofacial without contrast. COMPARISON: None FINDINGS: Facial bones: There are mildly displaced bilateral nasal bone fractures. Remainder of the osseous structures are intact. Orbits and globes: Unremarkable. Sinuses: No acute or significant findings. Soft tissues: Unremarkable. IMPRESSION: Minimally displaced bilateral nasal bone fractures. Please note that all CT scans at this facility use dose modulation, iterative reconstruction, and/or weight-based dosing when appropriate to reduce radiation dose to as low as reasonably achievable. Dictated by Licha Mcclellan MD @ Jul 01 2017 9:26PM (Electronic Signature) Report Signed by Proxy. [facility] CENTER[facility]ey
--- NOTE | 2017-07-04 10:51 | CT ---
EXAM DATE: 07/01/17 PATIENT'S AGE: 71 Patient: VIKTOR STRICKLAND Facility: [place], [place] Site . Site : 1945 Study: CT Head [id number]/[id number] 8:58:57 PM Ordering Physician: Doctor Santos Final Report: INDICATION: Fall TECHNIQUE: Head CT without contrast. COMPARISON: November 21, 2016 FINDINGS: CSF spaces: Within normal limits for age. Brain parenchyma: Normal israel-white junction. No sign of mass, hemorrhage, or midline shift. Skull base and calvarium: The visualized paranasal sinuses and mastoid air cells demonstrate no acute or significant findings. The visualized orbits are grossly unremarkable. No skull fractures. IMPRESSION: 1. No intracranial hemorrhage or skull fracture. 2. Minimally displaced bilateral nasal bone fractures. Please note that all CT scans at this facility use dose modulation, iterative reconstruction, and/or weight-based dosing when appropriate to reduce radiation dose to as low as reasonably achievable. Dictated by Licha Mcclellan MD @ Jul 01 2017 9:28PM (Electronic Signature) Report Signed by Proxy. [facility]
== END 2017-07-01 22:09 | disposition home or self-care (01) ==
LOC: MW.ED 19:34
DX: S02.2XXA Fracture of nasal bones, initial encounter for closed fracture (principal); S00.81XA Abrasion of other part of head, initial encounter; I10 Essential (primary) hypertension; Z88.1 Allergy status to other antibiotic agents; Z88.2 Allergy status to sulfonamides; W01.0XXA Fall on same level from slipping, tripping and stumbling without subsequent striking against object, initial encounter; Y92.481 Parking lot as the place of occurrence of the external cause; Z23 Encounter for immunization
CPT/HCPCS: 70450; 70486; 72125; 90471; 90715; 99283; A9270

== ENCOUNTER 2017-09-21 11:39 | Emergency (ER) | payer MEDICARE, OTHER ==
[2017-09-21] MEDS ORDERED: Ibuprofen 600 MG Tab PO ONE (12:08)
--- NOTE | 2017-09-21 12:09 | EDM.PDOC ---
ED HPI GENERAL MEDICAL PROBLEM - General Stated Complaint: NECK PAIN Time Seen by Provider: 09/21/17 11:41 Source of Information: Reports: Patient History Limitations: Reports: No Limitations - History of Present Illness INITIAL COMMENTS - FREE TEXT/NARRATIVE: History of present illness: []Patient started having bilateral neck and shoulder pain 3 days ago that is progressively worsened. She denies any trauma, numbness, tingling or weakness in her upper extremities. Review of systems: As per history of present illness and below otherwise all systems reviewed and negative. Past medical history: As per history of present illness and as reviewed below otherwise noncontributory. Surgical history: As per history of present illness and as reviewed below otherwise noncontributory. Social history: No reported history of drug or alcohol abuse. Family history: As per history of present illness and as reviewed below otherwise noncontributory. Physical exam: General: Well developed, well nourished in NAD HEENT: Atraumatic, normocephalic, pupils reactive, negative for conjunctival pallor or scleral icterus, mucous membranes moist, throat clear, neck supple, nontender, trachea midline. Lungs: Clear to auscultation, breath sounds equal bilaterally, chest nontender. Heart: S1S2, regular, negative for clicks, rubs, or JVD. Abdomen: Soft, nondistended, nontender. Negative for masses or hepatosplenomegaly. Negative for costovertebral tenderness. Pelvis: Stable nontender. Genitourinary: Deferred. Rectal: Deferred. Extremities: Atraumatic, negative for cords or calf pain. Neurovascular unremarkable. Neuro: Awake, alert, oriented. Cranial nerves II through XII unremarkable. Cerebellum unremarkable. Motor and sensory unremarkable throughout. Exam nonfocal. Diagnostics: [] Therapeutics: []Norflex Impression: []Muscle spasm Plan: []Norflex, ibuprofen Definitive disposition and diagnosis as appropriate pending reevaluation and review of above. Bilateral Neck Pain Score (Numeric/FACES): 8 - Related Data Allergies Allergy/AdvReac Type Severity Reaction Status Date / Time erythromycin base Allergy Swollen Verified 09/21/17 12:06 [Erythromycin Base] Tongue sulfamethoxazole Allergy Swollen Verified 09/21/17 12:06 [From Bactrim] Tongue trimethoprim [From Bactrim] Allergy Swollen Verified 09/21/17 12:06 Tongue Home Meds: Home Meds Hydrochlorothiazide 12.5 mg PO QPM 11/21/16 [History] Moexipril HCl [Moexipril] 15 mg PO QPM 11/21/16 [History] Orphenadrine [Norflex] 100 mg PO QID PRN #16 tab.er 09/21/17 [Rx] Potassium Chloride 10 meq PO QPM 09/21/17 [History] Past Medical History HEENT History: Reports: None Cardiovascular History: Reports: Hypertension Respiratory History: Reports: None Gastrointestinal History: Reports: None Genitourinary History: Reports: None 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: Musculoskeletal History: Reports: None Neurological History: Reports: None Psychiatric History: Reports: None Endocrine/Metabolic History: Reports: None Hematologic History: Reports: None Immunologic History: Reports: None Oncologic (Cancer) History: Reports: None Dermatologic History: Reports: None - Infectious Disease History Infectious Disease History: Reports: Chicken Pox, Measles, Mumps - Past Surgical History Head Surgeries/Procedures: Reports: None HEENT Surgical History: Reports: None Social & Family History - Family History Family Medical History: Noncontributory - Tobacco Use Smoking Status *Q: Never Smoker - Caffeine Use Caffeine Use: Reports: Coffee, Soda Caffeine Use Comment: 6 cups/day - Recreational Drug Use Recreational Drug Use: No ED ROS GENERAL - Review of Systems Review Of Systems: See Below (See history of present illness) ED EXAM, UPPER BACK/NECK PAIN - Physical Exam Exam: See Below (See history of present illness) Course - Vital Signs Last Recorded V/S: Last Vital Signs Temp 98.7 F 09/21/17 12:08 Pulse 71 09/21/17 12:08 Resp 18 09/21/17 12:08 BP 163/78 H 09/21/17 12:08 Pulse Ox 95 09/21/17 12:08 - Orders/Labs/Meds Orders: Active Orders 24 hr Category Date Time Status Orphenadrine [Norflex] Med 09/21/17 12:15 Active 60 mg IM Q12H Medication Orders Orphenadrine Citrate (Norflex) 60 mg IM Q12H SONIA Last Admin: 09/21/17 12:20 Dose: 60 mg Meds: Medications Generic Name Dose Route Start Last Admin Trade Name Freq PRN Reason Stop Dose Admin Orphenadrine Citrate 60 mg 09/21/17 12:15 09/21/17 12:20 Norflex IM 60 mg Q12H SONIA Administration Discontinued Medications Generic Name Dose Route Start Last Admin Trade Name Kobe PRN Reason Stop Dose Admin Ibuprofen 600 mg 09/21/17 12:08 09/21/17 12:20 Motrin PO 09/21/17 12:09 600 mg ONETIME ONE Administration Departure - Departure Time of Disposition: 12:45 Disposition: Home, Self-Care 01 Condition: Good Clinical Impression: Muscle spasm - Discharge Information Prescriptions: Orphenadrine [Norflex] 100 mg PO QID PRN #16 tab.er PRN Reason: Spasms Referrals: Tye Castaneda MD [Primary Care Provider] - Additional Instructions: The following information is given to patients seen in the emergency department who are being discharged to home. This information is to outline your options for follow-up care. We provide all patients seen in our emergency department with a follow-up referral. The need for follow-up, as well as the timing and circumstances, are variable depending upon the specifics of your emergency department visit. If you don't have a primary care physician on staff, we will provide you with a referral. We always advise you to contact your personal physician following an emergency department visit to inform them of the circumstance of the visit and for follow-up with them and/or the need for any referrals to a consulting specialist. The emergency department will also refer you to a specialist when appropriate. This referral assures that you have the opportunity for follow-up care with a specialist. All of these measure are taken in an effort to provide you with optimal care, which includes your follow-up. Under all circumstances we always encourage you to contact your private physician who remains a resource for coordinating your care. When calling for follow-up care, please make the office aware that this follow-up is from your recent emergency room visit. If for any reason you are refused follow-up, please contact the [facility] Emergency Department at and asked to speak to the emergency department charge nurse. Norflex for spasm, use heat and massage follow-up with PMD as needed [facility] Primary Care [address] [place] [id number] - My Orders Last 24 Hours: My Active Orders 09/21/17 12:15 Orphenadrine [Norflex] 60 mg IM Q12H - Assessment/Plan Last 24 Hours: My Active Orders 09/21/17 12:15 Orphenadrine [Norflex] 60 mg IM Q12H
[2017-09-21 13:03] VITALS: BP 152/85
== END 2017-09-21 13:00 | disposition home or self-care (01) ==
LOC: MW.ED 11:39
DX: M62.838 Other muscle spasm (principal); I10 Essential (primary) hypertension; Z88.1 Allergy status to other antibiotic agents; Z88.2 Allergy status to sulfonamides; Z88.8 Allergy status to other drugs, medicaments and biological substances
CPT/HCPCS: 96372; 99283; A9270; J2360

== ENCOUNTER 2021-07-28 16:00 | Emergency (ER) | payer MEDICARE, OTHER ==
[2021-07-28] MEDS ORDERED: Sodium Chloride 0.9% 2.5 ML Syringe FLUSH PRN (18:03)
[2021-07-28] MEDS ORDERED: Sodium Chloride 0.9% 10 ML Syringe FLUSH PRN (18:03)
[2021-07-28 18:57] LABS: BLOOD UREA NITROGEN,BUN 12 mg/dL (7.0-18.0); CARBON DIOXIDE,CO2 29.6 mmol/L (21.0-32.0); CHLORIDE,CL 100 mmol/L (98-107); GLUCOSE RANDOM 93 mg/dL (74-106); LIPASE 168 U/L (73-393); POTASSIUM,K 4.2 mmol/L (3.5-5.1); SODIUM,NA 136 mmol/L (136-145)
[2021-07-28] MEDS ORDERED: Iopamidol 755 MG/ML 500 ML Multipack Bottle IVPUSH STA (19:45)
--- NOTE | 2021-07-28 20:17 | CT ---
Indication: Left lower quadrant pain Technique: A CT volumetric acquisition was performed of the abdomen pelvis during intravenous infusion 100 cc Isovue 370. Findings: There are a few minimal ground-glass opacities at the lung bases. There is a small cyst within segment IV of the left lobe. Otherwise the liver has normal uniform enhancement. Spleen and pancreas appear normal. Gallbladder is been resected. The bile ducts are normal in size. The kidneys and adrenal glands appear normal. There is atherosclerotic calcification within the lower abdominal aorta and iliac arteries. There is no evidence of aneurysm or vascular dissection. There is no evidence of retro tear the. The small intestine appears normal. There are multiple diverticula within the left colon and there is localized inflammation about the mid sigmoid colon consistent with acute diverticulitis. There is no evidence of abscess formation or free intraperitoneal air. Patient is status post hysterectomy. The urinary bladder is partially filled and appears normal. Impression: Acute diverticulitis within the mid sigmoid colon. Please note that all CT scans at this facility use dose modulation, iterative reconstruction, and/or weight-based dosing when appropriate to reduce radiation dose to as low as reasonably achievable. Dictated by Kin Rosales MD @ 07/28/2021 8:16:23 PM (Electronically Signed)
[2021-07-28] MEDS ORDERED: metroNIDAZOLE 250 MG Tab PO ONE (20:39)
[2021-07-28] MEDS ORDERED: Ciprofloxacin 500 MG Tab PO ONE (20:40)
--- NOTE | 2021-07-28 20:48 | EDM.PDOC ---
ED HPI GENERAL MEDICAL PROBLEM - General Chief Complaint: Abdominal Pain Stated Complaint: ABDOMINAL PAIN RECTAL BLEEDING Time Seen by Provider: 07/28/21 17:41 Source of Information: Reports: Patient History Limitations: Reports: No Limitations - History of Present Illness INITIAL COMMENTS - FREE TEXT/NARRATIVE: HISTORY AND PHYSICAL: History of present illness: Patient is a 75-year-old female who presents emergency room today with concern of left lower quadrant abdominal pain and blood in her stools. Patient states that she initially had onset of symptoms starting with abdominal pain and states that it was crampy in nature and all over her abdomen. Patient states that her abdominal pain is more localized to the left lower quadrant but has actually improved as time is gone on. Patient states that now over the past 2 days, she has had blood in her stools and states that it is a more maroon in color. Patient states that she does not have blood unless she has a bowel movement. Patient states that she has been more constipated. Patient states that she is having left lower quadrant abdominal pain today. Patient states she has not taken anything for her symptoms. Patient does have a history of cholecystectomy, appendectomy, and hysterectomy. Patient states that she did have a colonoscopy a few years ago in [place] and was told to have 1 every 10 years. Patient denies fever, chills, chest pain, shortness of breath, or cough. Denies headache, neck stiff ness, change in vision, syncope, or near syncope. Denies nausea, vomiting, diarrhea, constipation, or dysuria. Has not noted any blood in urine. Patient has been eating and drinking appropriately. Review of systems: As per history of present illness and below otherwise all systems reviewed and negative. Past medical history: As per history of present illness and as reviewed below otherwise noncontributory. Surgical history: As per history of present illness and as reviewed below otherwise noncontributory. Social history: See social history for further information Family history: As per history of present illness and as reviewed below otherwise noncontributory. Physical exam: General: Patient is alert, oriented, and in no acute distress. Patient sitting comfortably on exam table. Vitals stable and reviewed by me HEENT: Atraumatic, normocephalic, pupils equal and reactive bilaterally, negative for conjunctival pallor or scleral icterus, mucous membranes moist, throat clear, neck supple, nontender, trachea midline. No drooling or trismus noted. No meningeal signs. No hot potato voice noted. Lungs: Clear to auscultation, breath sounds equal bilaterally, chest nontender. Heart: S1S2, regular rate and rhythm without overt murmur Abdomen: Soft, nondistended, moderate LLQ tenderness. Negative for masses or hepatosplenomegaly. Negative for costovertebral tenderness. Pelvis: Stable nontender. Genitourinary: Deferred. Rectal: Casing Cleaner at bedside Kin Ryan RN. No obvious hemorrhoid, fissure, mass, or lesions noted. Patient does have maroon-colored stool with Hemoccult positive. Skin: Intact, warm, dry. No lesions or rashes noted. Extremities: Atraumatic, negative for cords or calf pain. Neurovascular unremarkable. Neuro: Awake, alert, oriented. Cranial nerves II through XII unremarkable. Cerebellum unremarkable. Motor and sensory unremarkable throughout. Exam non focal. Medical Decision Making: Patient is a 75-year-old female resents emergency room today with concern of left lower quadrant abdominal pain and blood in stool. Patient has had initially more generalized abdominal pain and has been improving but is now localized to the left lower quadrant over the past 1 week with onset of bloody stools yesterday. Upon arrival to the ED, patient is vitally stable and well- appearing on exam. She does have some left lower quadrant tenderness and examination does show Hemoccult positive stool with maroon-colored stool without obvious source on exam for bleeding. At this time, will obtain IV access, obtain basic lab work with intention of obtaining abdominal pelvic CT scan. CBC mild derangements are unremarkable. Specifically white blood cell count is within normal limits. And hemoglobin and hematocrit are within normal limits at 12.7, and 37.9 respectively. Mild derangements of CMP are unremarkable. Lipase is within normal limits. Urinalysis is clear of infection. Abdominal pelvic CT scan does show acute diverticulitis within the sigmoid colon without abscess, free intraperitoneal air. I will repeat a hemoglobin and hematocrit. Hemoglobin and hematocrit improved from initial draw. On reevaluation of patient, she remains vitally stable and comfortable throughout stay in ED. This is patient's first presentation for acute diverticu litis and discussed with patient the importance of follow-up with general surgery for colonoscopy consideration in 6 weeks. Given that patient's hemoglobin and hematocrit is stable, patient has a reason to be having blood in her stool with acute diverticulitis, and patient does not have any evidence of complicated diverticulitis, I do feel that patient is stable to be treated as outpatient as she can tolerate p.o., no significant comorbidity, able to obtain her antibiotics, has adequate pain control and uncomplicated disease. Direct return precautions thoroughly discussed with patient. All signs and symptoms that were prompt return to the ED thoroughly discussed with patient. Discussed importance for follow-up with her primary care provider and general surgery Voices understanding and is agreeable to plan of care. Denies any further questions or concerns at this time. Diagnostics: CBC, CMP, UA, Hemoccult, abdominal pelvic CT scan with contrast Therapeutics: Ciprofloxacin, metronidazole Prescription: Ciprofloxacin, metronidazole Impression: Acute diverticulitis Plan: 1. Ensure that you are giving your bowel sufficient rest with a liquid diet and low fiber foods until symptomatically improving as discussed. 2. Take medications as prescribed. [facility] medications [facility]. 3. Would like you to follow-up with general surgery as discussed in 6 weeks for colonoscopy consideration as discussed. 4. Follow-up with your primary care provider and general surgeon as discussed. Return to the ED as needed and as discussed. Definitive disposition and diagnosis as appropriate pending reevaluation and review of above. LLQ Pain Score (Numeric/FACES): 1 - Related Data Allergies Allergy/AdvReac Type Severity Reaction Status Date / Time erythromycin base Allergy Swollen Verified 07/28/21 16:26 [Erythromycin Base] Tongue sulfamethoxazole Allergy Swollen Verified 07/28/21 16:26 [From Bactrim] Tongue trimethoprim [From Bactrim] Allergy Swollen Verified 07/28/21 16:26 Tongue Home Meds: Home Meds Moexipril HCl [Moexipril] 15 mg PO QPM 11/21/16 [History] hydroCHLOROthiazide [Hydrochlorothiazide] 12.5 mg PO QPM 11/21/16 [History] Potassium Chloride 10 meq PO QPM 09/21/17 [History] Ciprofloxacin [Ciprofloxacin HCl] 500 mg PO BID 14 Days #28 tab 07/28/21 [Rx] amLODIPine [Norvasc] 5 mg PO DAILY 07/28/21 [History] metroNIDAZOLE [Flagyl] 500 mg PO Q8HR 14 Days #42 tab 07/28/21 [Rx] Past Medical History HEENT History: Reports: None Cardiovascular History: Reports: Hypertension Respiratory History: Reports: None Gastrointestinal History: Reports: None Genitourinary History: Reports: None 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: Musculoskeletal History: Reports: Arthritis Neurological History: Reports: None Psychiatric History: Reports: None Endocrine/Metabolic History: Reports: None Hematologic History: Reports: None Immunologic History: Reports: None Oncologic (Cancer) History: Reports: None Dermatologic History: Reports: None - Infectious Disease History Infectious Disease History: Reports: Chicken Pox, Measles, Mumps - Past Surgical History Head Surgeries/Procedures: Reports: None HEENT Surgical History: Reports: None GI Surgical History: Reports: Appendectomy, Colonoscopy Female Surgical History: Reports: Hysterectomy Endocrine Surgical History: Reports: None Musculoskeletal Surgical History: Reports: Knee Replacement Social & Family History - Family History Family Medical History: No Pertinent Family History - Tobacco Use Tobacco Use Status *Q: Never Tobacco User - Caffeine Use Caffeine Use: Reports: Coffee Caffeine Use Comment: 6 cups/day - Recreational Drug Use Recreational Drug Use: No ED ROS GENERAL - Review of Systems Review Of Systems: Comprehensive ROS is negative, except as noted in HPI. ED EXAM, GENERAL - Physical Exam Exam: See Below (see dictation) Course - Vital Signs Last Recorded V/S: Last Vital Signs Temp 97.6 F 07/28/21 16:28 Pulse 66 07/28/21 21:09 Resp 17 07/28/21 21:09 BP 124/64 07/28/21 21:09 Pulse Ox 97 07/28/21 21:09 - Orders/Labs/Meds Orders: Active Orders 24 hr Category Date Time Status CULTURE URINE [MREF] Stat Lab 07/28/21 16:38 Received Saline Lock Insert [OM.PC] Stat Oth 07/28/21 18:03 Ordered Labs: Laboratory Tests 07/28/21 07/28/21 07/28/21 Range/Units 16:38 18:10 18:10 WBC 4.90 (4.0-11.0) K/uL RBC 4.26 L (4.30-5.90) M/uL Hgb 12.7 (12.0-16.0) g/dL Hct 37.9 (36.0-46.0) % MCV 89.0 (80.0-98.0) fL MCH 29.8 (27.0-32.0) pg MCHC 33.5 (31.0-37.0) g/dL RDW Std Deviation 44.2 (28.0-62.0) fl RDW Coeff of Maged 14 (11.0-15.0) % Plt Count 332 (150-400) K/uL MPV 10.90 (7.40-12.00) fL Neut % (Auto) 55.8 (48.0-80.0) % Lymph % (Auto) 29.6 (16.0-40.0) % [place] % (Auto) 12.4 (0.0-15.0) % Eos % (Auto) 1.8 (0.0-7.0) % Baso % (Auto) 0.4 (0.0-1.5) % Neut # (Auto) 2.7 (1.4-5.7) K/uL Lymph # (Auto) 1.5 (0.6-2.4) K/uL [place] # (Auto) 0.6 (0.0-0.8) K/uL Eos # (Auto) 0.1 (0.0-0.7) K/uL Baso # (Auto) 0.0 (0.0-0.1) K/uL Nucleated RBC % 0.0 /100WBC Nucleated RBCs # 0 K/uL Sodium 136 (136-145) mmol/L Potassium 4.2 (3.5-5.1) mmol/L Chloride 100 (98-107) mmol/L Carbon Dioxide 29.6 (21.0-32.0) mmol/L BUN 12 (7.0-18.0) mg/dL Creatinine 0.5 L (0.6-1.0) mg/dL Est Cr Clr Drug Dosing 82.89 mL/min Estimated GFR (MDRD) > 60.0 ml/min Glucose 93 (74-106) mg/dL Calcium 9.4 (8.5-10.1) mg/dL Total Bilirubin 0.3 (0.2-1.0) mg/dL AST 16 (15-37) IU/L ALT 20 (14-63) IU/L Alkaline Phosphatase 70 (46-116) U/L Total Protein 7.2 (6.4-8.2) g/dL Albumin 3.3 L (3.4-5.0) g/dL Globulin 3.9 (2.6-4.0) g/dL Albumin/Globulin Ratio 0.9 (0.9-1.6) Lipase 168 (73-393) U/L Urine Color YELLOW Urine Appearance CLEAR Urine pH 6.5 (5.0-8.0) Ur Specific [place] 1.020 (1.001-1.035) Urine Protein NEGATIVE (NEGATIVE) mg/dL Urine Glucose (UA) NEGATIVE (NEGATIVE) mg/dL Urine Ketones TRACE H (NEGATIVE) mg/dL Urine Occult Blood NEGATIVE (NEGATIVE) Urine Nitrite NEGATIVE (NEGATIVE) Urine Bilirubin NEGATIVE (NEGATIVE) Urine Urobilinogen 0.2 (<2.0) EU/dL Ur Leukocyte Esterase TRACE H (NEGATIVE) Urine RBC 0-3 (0-2/HPF) Urine WBC 0-1 (0-5/HPF) Ur Epithelial Cells RARE (NONE-FEW) Urine Bacteria FEW (NEGATIVE) Urine Mucus LIGHT (NONE-MOD) 07/28/21 Range/Units 20:35 WBC (4.0-11.0) K/uL RBC (4.30-5.90) M/uL Hgb 13.2 (12.0-16.0) g/dL Hct 39.2 (36.0-46.0) % MCV (80.0-98.0) fL MCH (27.0-32.0) pg MCHC (31.0-37.0) g/dL RDW Std Deviation (28.0-62.0) fl RDW Coeff of Maged (11.0-15.0) % Plt Count (150-400) K/uL MPV (7.40-12.00) fL Neut % (Auto) (48.0-80.0) % Lymph % (Auto) (16.0-40.0) % [place] % (Auto) (0.0-15.0) % Eos % (Auto) (0.0-7.0) % Baso % (Auto) (0.0-1.5) % Neut # (Auto) (1.4-5.7) K/uL Lymph # (Auto) (0.6-2.4) K/uL [place] # (Auto) (0.0-0.8) K/uL Eos # (Auto) (0.0-0.7) K/uL Baso # (Auto) (0.0-0.1) K/uL Nucleated RBC % /100WBC Nucleated RBCs # K/uL Sodium (136-145) mmol/L Potassium (3.5-5.1) mmol/L Chloride (98-107) mmol/L Carbon Dioxide (21.0-32.0) mmol/L BUN (7.0-18.0) mg/dL Creatinine (0.6-1.0) mg/dL Est Cr Clr Drug Dosing mL/min Estimated GFR (MDRD) ml/min Glucose (74-106) mg/dL Calcium (8.5-10.1) mg/dL Total Bilirubin (0.2-1.0) mg/dL AST (15-37) IU/L ALT (14-63) IU/L Alkaline Phosphatase (46-116) U/L Total Protein (6.4-8.2) g/dL Albumin (3.4-5.0) g/dL Globulin (2.6-4.0) g/dL Albumin/Globulin Ratio (0.9-1.6) Lipase (73-393) U/L Urine Color Urine Appearance Urine pH (5.0-8.0) Ur Specific [place] (1.001-1.035) Urine Protein (NEGATIVE) mg/dL Urine Glucose (UA) (NEGATIVE) mg/dL Urine Ketones (NEGATIVE) mg/dL Urine Occult Blood (NEGATIVE) Urine Nitrite (NEGATIVE) Urine Bilirubin (NEGATIVE) Urine Urobilinogen (<2.0) EU/dL Ur Leukocyte Esterase (NEGATIVE) Urine RBC (0-2/HPF) Urine WBC (0-5/HPF) Ur Epithelial Cells (NONE-FEW) Urine Bacteria (NEGATIVE) Urine Mucus (NONE-MOD) Meds: Medications Discontinued Medications Generic Name Dose Route Start Last Admin Trade Name Freq PRN Reason Stop Dose Admin Ciprofloxacin 500 mg 07/28/21 20:40 07/28/21 20:45 Ciprofloxacin 500 Mg Tab PO 07/28/21 20:41 500 mg ONETIME ONE Administration Iopamidol 100 ml 07/28/21 19:45 07/28/21 19:45 Iopamidol 755 Mg/Ml 500 Ml Multipack Bottle IVPUSH 07/28/21 19:46 100 ml ONETIME STA Administration Metronidazole 500 mg 07/28/21 20:39 07/28/21 20:45 Metronidazole 250 Mg Tab PO 07/28/21 20:40 500 mg ONETIME ONE Administration Sodium Chloride 10 ml 07/28/21 18:03 07/28/21 18:36 Sodium Chloride 0.9% 10 Ml Syringe FLUSH 10 ml ASDIRECTED PRN Administration Keep Vein Open Sodium Chloride 2.5 ml 07/28/21 18:03 07/28/21 18:36 Sodium Chloride 0.9% 2.5 Ml Syringe FLUSH 2.5 ml ASDIRECTED PRN Administration Keep Vein Open Departure - Departure Time of Disposition: 20:41 Disposition: Home, Self-Care 01 Clinical Impression: Acute diverticulitis - Discharge Information Prescriptions: Ciprofloxacin [Ciprofloxacin HCl] 500 mg PO BID 14 Days #28 tab metroNIDAZOLE [Flagyl] 500 mg PO Q8HR 14 Days #42 tab Referrals: Tye Castaneda MD [Primary Care Provider] - Forms: ED Department Discharge Additional Instructions: The following information is given to patients seen in the emergency department who are being discharged to home. This information is to outline your options for follow-up care. We provide all patients seen in our emergency department with a follow-up referral. The need for follow-up, as well as the timing and circumstances, are variable depending upon the specifics of your emergency department visit. If you don't have a primary care physician on staff, we will provide you with a referral. We always advise you to contact your personal physician following an emergency department visit to inform them of the circumstance of the visit and for follow-up with them and/or the need for any referrals to a consulting specialist. The emergency department will also refer you to a specialist when appropriate. This referral assures that you have the opportunity for follow-up care with a specialist. All of these measure are taken in an effort to provide you with optimal care, which includes your follow-up. Under all circumstances we always encourage you to contact your private physician who remains a resource for coordinating your care. When calling for follow-up care, please make the office aware that this follow-up is from your recent emergency room visit. If for any reason you are refused follow-up, please contact the [facility] Emergency Department at and asked to speak to the emergency department charge nurse. [facility] [address] [place] [id number] [facility] [address] [place] [address] [facility] - General Surgery Professional Building [address] [facility], [address] [place] [address] 1. Ensure that you are giving your bowel sufficient rest with a liquid diet and low fiber foods until symptomatically improving as discussed. 2. Take medications as prescribed. Your medications [facility]. 3. Would like you to follow-up with general surgery as discussed in 6 weeks for colonoscopy consideration as discussed. 4. Follow-up with your primary care provider and general surgeon as discussed. Return to the ED as needed and as discussed. Sepsis Event Note (ED) - Evaluation Sepsis Screening Result: No Definite Risk - Focused Exam Vital Signs: Vital Signs Temp Pulse Resp BP Pulse Ox 07/28/21 21:09 66 17 124/64 97 07/28/21 20:07 64 17 117/66 97 07/28/21 16:28 97.6 F 88 18 120/59 L 93 L - My Orders Last 24 Hours: My Active Orders 07/28/21 18:03 Saline Lock Insert [OM.PC] Stat - Assessment/Plan Last 24 Hours: My Active Orders 07/28/21 18:03 Saline Lock Insert [OM.PC] Stat
[2021-07-28 21:10] VITALS: BP 124/64; PULSE 66
== END 2021-07-28 21:10 | disposition home or self-care (01) ==
LOC: MW.ED 16:00
DX: K57.32 Diverticulitis of large intestine without perforation or abscess without bleeding (principal); I10 Essential (primary) hypertension; Z88.1 Allergy status to other antibiotic agents
CPT/HCPCS: 36415; 74177; 80053; 81001; 83690; 85014; 85018; 85025; 87086; 99284; A9270; Q9967